=== PATIENT | male | born 1980 | race Caucasian/White ===

== ENCOUNTER 2018-09-14 12:28 | Day surgery (SDC) | payer OTHER ==
[2018-09-11 14:13] VITALS: BMI 31.2
[2018-09-14] MEDS ORDERED: CEFAZOLIN 2 GM/50 ML BAG ONE (12:52)
[2018-09-14] MEDS ORDERED: Fentanyl 100 MCG/2 ML VIAL ONE ×2 (13:04→16:03)
[2018-09-14] MEDS ORDERED: Ondansetron PF 4 MG/2 ML Vial ONE (13:28)
[2018-09-14] MEDS ORDERED: Scopolamine 1.5 mg/72 hour Patch ONE (13:28)
[2018-09-14] MEDS ORDERED: Famotidine/PF 20 mg/2ml Vial ONE (13:28)
[2018-09-14] MEDS ORDERED: Bupivacaine/Epinephrine 0.25% 30 ML VIAL ONE (13:42)
[2018-09-14] MEDS ORDERED: Metoclopramide HCl 10 MG/2 ML VIAL ONE (15:01)
[2018-09-14] MEDS ORDERED: Glycopyrrolate 0.2 MG/ML 5 ML SYRINGE ONE (15:01)
[2018-09-14] MEDS ORDERED: Ketorolac Tromethamine 30 MG/ML VIAL ONE (15:01)
[2018-09-14] MEDS ORDERED: PROPOFOL 200 MG/20 ML VIAL ONE (15:01)
[2018-09-14] MEDS ORDERED: Lidocaine 1% PF 5 ML VIAL ONE (15:01)
[2018-09-14] MEDS ORDERED: Dexamethasone 20 MG/5 ML VIAL ONE (15:01)
[2018-09-14] MEDS ORDERED: HYDROmorphone 2 MG/ML VIAL ONE (16:24)
[2018-09-14] MEDS ORDERED: HYDROcodone/Acetaminophen 10/325 mg Tablet ONE (18:00)
[2018-09-14] MEDS ORDERED: Morphine 4 MG/ML VIAL ONE (18:01)
--- NOTE | 2018-09-14 20:17 | OP ---
DATE: 09/14/2018 PREOPERATIVE DIAGNOSES: 1. Recurrent left inguinal hernia. 2. Right inguinal hernia. PROCEDURES: 1. Da Arely laparoscopic recurrent left inguinal hernia repair with mesh, 3DMax large. 2. Da Arely laparoscopic right inguinal hernia repair with mesh, 3DMax large. SURGEON: James Woods MD ANESTHESIA: General. ESTIMATED BLOOD LOSS: Minimal. COMPLICATIONS: None. SPECIMEN: None. TECHNIQUE: The patient was taken to the operating room, placed supine on the table. After general a nesthetic was obtained, a Martines was placed. The abdomen was shaved, prepped, and draped in a sterile fashion. Curved incision was made above the umbilicus. Cautery was used to dissect down to the bas e of the umbilicus. The umbilicus was amputated, exposing a small umbilical defect. This was used f or the first trocar placement, 11-mm balloon trocar. High-flow pneumoperitoneum was obtained. Left and right abdominal 8-mm robot trocars were placed. All ports were docked to the robot. The patient had been placed in Trendelenburg position. The peritoneum was opened. In the left groin, there was a large indirect hernia. The preperitoneal space was bluntly dissected all the way to the pubic tub ercle medially, anterior superior iliac crest laterally. The shelving edging ligament was fully expo sed. The indirect hernia sac was dissected away from all cord structures high up onto the peritoneum . The sac was transected going up into the groin for the peritoneum to be allowed to come back down. Dissection was performed on the right side as well. Bilateral large mesh had been placed into the abdomen. The end labeled medial aspects were placed over pubic tubercle medially and the mesh was la id out to cover the indirect, direct, and femoral areas bilaterally. The mesh bilaterally was sewn t o pubic tubercle medially and to the posterior fascia laterally. On the right side, there was an ind irect hernia that had been dissected high up onto the peritoneum. The peritoneum was reapproximated using 3-0 Stratafix. All port sites were infiltrated using local anesthetic. All ports were removed under camera visualization. Pneumoperitoneum was let down. The umbilical defect at the base of the umbilicus was closed using PDS suture. The umbilical stalk is tacked back down using 3-0 Vicryl. T he skins were all closed using 4-0 Monocryl and Dermabond. The patient was en route to recovery in s table condition. All instrument counts, needle counts, lap counts are correct.
[2018-09-14] MEDS ORDERED: HYDROcodone/Acetaminophen 5/325 mg Tablet ONE (20:36)
== END 2018-09-14 20:50 | disposition home or self-care (01) ==
LOC: SDC 12:28
PROVIDERS: ATTEND Surgery
PROC: 0YU54JZ Supplement Right Inguinal Region with Synthetic Substitute, Percutaneous Endoscopic Approach (ICD-10-PCS; principal; 2018-09-14)
PROC: 0YU64JZ Supplement Left Inguinal Region with Synthetic Substitute, Percutaneous Endoscopic Approach (ICD-10-PCS; principal; 2018-09-14)
DX: K40.91 Unilateral inguinal hernia, without obstruction or gangrene, recurrent (principal); G47.33 Obstructive sleep apnea (adult) (pediatric)
CPT/HCPCS: 51798; 96374; C1781; J0131; J1100; J1170; J1885; J2001; J2270; J2405; J2704; J2765; J3010; S0028

== ENCOUNTER 2019-04-07 11:47 | Emergency (ER) | payer SELFPAY ==
[2019-04-07 12:30] LABS: #Lymphocytes 1.3 thou/uL (1.20-3.40); #Monocytes 0.4 thou/uL (0.11-0.59); #Neutrophils 7.4 thou/uL (1.40-6.50); %Basophils 0.3 % (0.0-1.0); %Eosinophils 0.4 % (0.0-10.0); %Lymphocytes 14.3 % (21.0-51.0); %Monocytes 4.6 % (0.0-10.0); %Neutrophils 80.5 % (42.0-75.0); Hemoglobin 17.1 g/dL (14.0-18.0); Mean Corpuscular HGB CONC 32.8 g/dL (32.0-36.0); Mean Corpuscular Hemoglobin 29.7 pg (27.0-31.0); Mean Corpuscular Volume 90.6 fL (78.0-98.0); Mean Platelet Volume 7.4 fL (7.4-10.4); Platelet Count 230 thou/uL (130-400); RBC Distribution Width 12.7 % (11.5-14.5); Red Blood Cell (RBC) Count 5.75 mill/uL (4.70-6.10); White Blood Cell (WBC) Count 9.1 thou/uL (4.8-10.8)
[2019-04-07 12:47] LABS: Bilirubin Negative (Negative); Blood, Urine Negative (Negative); Clarity CLEAR (Clear); Glucose, Urine (Dipstick) Negative (Negative); Leukocyte Negative (Negative); Nitrite Negative (Negative); Protein, Urine (Dipstick) Negative (Neg-Trace); Specific Gravity, Urine 1.009 (1.002-1.036); Urobilinogen 0.2 mg/dL (0.2-1.0); pH, Urine 6.5 (5.0-9.0)
[2019-04-07 12:54] LABS: ALT (SGPT) 34 U/L (8-55); AST (SGOT) 21 U/L (5-34); Albumin 4.7 g/dL (3.5-5.0); Alkaline Phosphatase 57 U/L (40-150); Anion Gap 13 mmol/L (10-20); BUN (Urea Nitrogen) 13 mg/dL (8.9-20.6); Bilirubin, Total 1.6 mg/dL (0.2-1.2); Calc. Creatinine Clearance 0 mL/min (70-130); Calcium 9.9 mg/dL (7.8-10.44); Carbon Dioxide 27 mmol/L (22-29); Chloride 104 mmol/L (98-107); Estimated GFR-MDRD 89; Globulin 2.8 g/dL (2.4-3.5); Glucose 97 mg/dL (70-105); Lipase 17 U/L (8-78); Potassium 4.2 mmol/L (3.5-5.1); Protein, Total 7.5 g/dL (6.0-8.3); Sodium 140 mmol/L (136-145)
[2019-04-07] MEDS ORDERED: Ondansetron ODT 4 MG TAB ONE (13:38)
[2019-04-07] MEDS ORDERED: Mag-Al 1200 mg/1200 mg/30 ML UDCUP ONE (13:45)
[2019-04-07] MEDS ORDERED: Lidocaine Viscous Sol 2% 15 ml UD Cup ONE (13:45)
--- NOTE | 2019-04-07 13:45 | RAD ---
EXAM: Chest one view: HISTORY: Cough and congestion for 2 weeks COMPARISON: 10/06/2014 FINDINGS: Heart size: Within normal limits. The lungs: Clear of acute process. No evidence for pneumonia, pleural effusion, acute edema, or pneumothorax, or other significant acute process. IMPRESSION: No significant acute intrathoracic disease.
== END 2019-04-07 14:40 | disposition home or self-care (01) ==
LOC: ERS 11:47
DX: R10.84 Generalized abdominal pain (principal); R07.9 Chest pain, unspecified
CPT/HCPCS: 36415; 71045; 80053; 81003; 83690; 84484; 85025; 93005; Q0162